=== PATIENT | male | born 1975 | race Hispanic/Latino ===

== ENCOUNTER 2024-12-04 16:33 | Emergency (ER) | payer BC ==
[~2024-12-04] VITALS: Ht 170.2 cm; Wt 111.1 kg
[2024-12-04 16:57] LABS: BASOPHILS # (AUTO) 0.08 K/uL (0.00-0.20); EOSINOPHILS # (AUTO) 0.12 K/uL (0.00-0.70); EOSINOPHILS % (AUTO) 1.5 % (0.0-8.0); HEMATOCRIT 51.2 % (42-54); IMMATURE GRANULOCYTE ABSOLUTE 0.05 K/uL (0-1); LYMPHOCYTES # (AUTO) 3.2 K/uL (1.0-4.8); LYMPHOCYTES % (AUTO) 39.4 % (21.0-51.0); MEAN CORPUSCULAR HGB CONC 33.8 g/dL (32.0-36.0); MEAN CORPUSCULAR VOLUME 88.7 fL (79-99); MONOCYTES # (AUTO) 0.9 K/uL (0.1-1.0); MONOCYTES % (AUTO) 10.6 % (3.0-13.0); NEUTROPHILS # (AUTO) 3.8 K/uL (1.8-7.7); NEUTROPHILS % (AUTO) 46.9 % (40.0-77.0); PLATELET COUNT (AUTO) 178 K/uL (130-400); RED BLOOD CELL COUNT(AUTO) 5.77 MIL/uL (4.50-6.20); RED CELL DISTRIBUTION WIDTH 12.3 % (11.0-15.5); WHITE BLOOD COUNT (AUTO) 8.1 K/uL (4.8-10.8)
--- NOTE | 2024-12-04 17:04 | HMCIMG ---
CT HEAD/BRAIN W/O CONTRAST HISTORY: Stroke COMPARISON: None TECHNIQUE: Multiple sequential axial images of the head were obtained from the base of the skull through vertex. Patient was not given contrast through intravenous route. FINDINGS: The ventricles and extraventricular CSF spaces are dilated consistent with cerebral atrophy. Nonspecific white matter changes seen. There is no midline shift, mass effect or herniation. No acute intracranial bleed is seen. Visualized portion of the paranasal sinuses are grossly within normal limits. IMPRESSION: 1. No acute intracranial bleed is seen. 2. Atrophy with white matter changes. CT was performed with one or more following dose reduction techniques: automated exposure control, adjustment of the mA and kv according to patient's size, or use of a iterative reconstruction technique.
[2024-12-04 17:08] LABS: CREATININE 1.2 mg/dL (0.5-1.3); POTASSIUM 3.9 mmol/L (3.5-5.1)
[2024-12-04 17:09] LABS: INR 1.02 (0.85-1.15); PROTHROMBIN TIME 10.8 SEC (9.6-11.6)
[2024-12-04 17:10] LABS: PARTIAL THROMBOPLASTIN TIME 25.1 SEC (26.3-35.5)
[2024-12-04 17:20] LABS: B-TYPE NATRIURETIC PEPTIDE < 5 pg/mL (0-100)
--- NOTE | 2024-12-04 17:20 | HMCIMG ---
CHEST 1VW CLINICAL HISTORY: STROKE SYMPTOMS COMPARISON: None TECHNIQUE: Single view of the chest was obtained. FINDINGS: The lungs are hypoventilated. The cardiac size and mediastinum are unremarkable. The bony structures are within normal limits. IMPRESSION: Hypoventilation.
[2024-12-04 17:27] LABS: APPEARANCE,URINE CLEAR (CLEAR); BILIRUBIN,URINE NEGATIVE (NEGATIVE); COLOR,URINE LIGHT-YELLOW (YELLOW); GLUCOSE, URINE (UA) >=1000 mg/dL (NEGATIVE); KETONES,URINE NEGATIVE (NEGATIVE); LEUKOCYTE ESTERASE ,URINE NEGATIVE Leu/uL (NEGATIVE); NITRATE,URINE NEGATIVE (NEGATIVE); OCCULT BLOOD,URINE NEGATIVE (NEGATIVE); PH,URINE 6.5 (5.0-8.0); PROTEIN,URINE NEGATIVE (NEGATIVE); UROBILINOGEN,URINE 0.2 mg/dL (0.2-1.0)
--- NOTE | 2024-12-04 17:28 | CONS ---
CONSULT NOTE: [place] [facility] Note # Demographics Consult Type: General Neurology Patient Location: Emergency Room First Name: GEOVANNA Last Name: UMESH Date of : 1975 Age: 49 Gender: Male Facility: [facility] Time of Initial Page (Central Time): 12/04/2024 16:48 Time of Return Call (Central Time): 12/04/2024 16:48 # HPI History: [id number] Patient is coming to ER for left sided numbness; he woke up around 1300 and noticed the numbness and tingling on the left side of lips. His symptoms have resolved and lasted few seconds. Duration: - resolved # Scores Time of exam and NIHSS (Central Time): 12/04/2024 17:11 Level of Consciousness 1a: [0] = Alert; keenly responsive LOC Questions 1b: [0] = Answers both questions correctly LOC Commands 1c: [0] = Performs both tasks correctly Best Gaze 2: [0] = Normal Visual 3: [0] = No visual loss Facial Palsy 4: [0] = Normal symmetrical movements Motor Arm Left 5a: [0] = No drift Motor Arm Right 5b: [0] = No drift Motor Leg Left 6a: [0] = No drift Motor Leg Right 6b: [0] = No drift Limb Ataxia 7: [0] = Absent Sensory 8: [0] = Normal Best Language 9: [0] = No aphasia Dysarthria 10: [0] = Normal Extinction and Inattention 11: [0] = No abnormality NIHSS Total: 0 # Assessment Impression: - Transient Ischemic Attack # Plan Thrombolytic/Intervention: NOT IV Thrombolysis or IA Intervention candidate Thrombolytic Exclusion (< 3 hour window): - NIHSS = 0 Intraarterial Exclusion: - clinical exam not consistent with presence of large vessel occlusion (LVO), can reconsider if LVO found on vascular imaging Modified Ham Scale (mRS) pre-stroke: [0] = No symptoms at all. Labs: - hemoglobin A1c - lipid panel - comprehensive metabolic panel - CBC Imaging: (urgency: STAT): - CT Angiogram Head and CT Angiogram Neck Imaging: (urgency: routine): - MRI Brain without contrast Diagnostic Test: - echo without bubble study Medication: - start statin with goal of LDL < 70 - aspirin 81 mg PLUS clopidogrel (Plavix) 75 mg for 21 days, then monotherapy therafter DVT Prophylaxis: - SCD Other: - If patient has any neurological deterioration please call me back immediately - LDL < 70 - permissive hypertension - telemetry monitoring - will need event monitor or loop recorder as outpatient if atrial fibrillation not found as inpatient - neurology referral as outpatient - I have discussed my recommendations with the referring provider # Logistics Attestation of consult completion: The patient is located at: [facility]. Facility staff participated in the visit. I performed this telemedicine visit from my offsite office utilizing interactive 2 way audio and visual telecommunication technology. Total time spent in telemedicine encounter: I spent 10 minutes reviewing clinical data and/or imaging, obtaining history, examining the patient, communicating with the onsite care team, and in preparation of this report. # Demographics First Name: GEOVANNA Last Name: UMESH Facility: [facility] OSMAN MOSQUERA MD December 04, 2024 17:28
[2024-12-04 17:30] LABS: ADD UA MICROSCOPIC YES; AMPHET/METH SCREEN,URINE NEGATIVE (NEGATIVE); BARBITURATE SCREEN, URINE NEGATIVE (NEGATIVE); BENZODIAZEPINES SCREEN,URINE NEGATIVE (NEGATIVE); CANNABINOID SCREEN,URINE NEGATIVE (NEGATIVE); COCAINE SCREEN,URINE NEGATIVE (NEGATIVE); OPIATE SCREEN,URINE NEGATIVE (NEGATIVE); PHENCYCLIDINE SCREEN,URINE NEGATIVE (NEGATIVE)
[2024-12-04 17:31] LABS: MUCUS,URINE RARE LPF (None Seen); RBC,URINE 0-1 /HPF (0-1); WBC,URINE 0-1 /HPF (0-1)
--- NOTE | 2024-12-04 17:49 | ERN ---
ED Note History of Present Illness Stated Complaint: FACIAL NUMBNESS Chief Complaint: Stroke Symptoms Time Seen by MD: 16:45 Time Seen by Midlevel: 16:50 Dictation: 49-year-old male with no past medical history coming in with complaints of feeling left-sided mild numbness that started at 1:00 p.m. it now states he has tingling/numbness sensation to the right side of his face. Patient states also about 30 minutes prior to arrival he felt his right hand weird" a as he was trying to sign a check. Code stroke activated in triage. Allergies: Coded Allergies: No Known Drug Allergies (Unverified Allergy, Unknown, 12/04/24) Home Meds No Active Prescriptions or Reported Meds Past Medical History Past Medical History: Diabetes-Type II, High Cholesterol, Hypertension Surgical History: None Review of System Dictation Constitutional: Negative for fever,chills, and weight loss Eyes: Negative for injury, pain,redness, and discharge ENT: Negative for injury,pain or swelling Cardiovascular: Negative for chest pain, palpitations, and edema Respiratory: Negative for shortness of breath, cough, and wheezing, Abdomen/GI: Negative for abdominal pain, nausea, vomiting, diarrhea, and constipation Back: Negative for injury and pain : Negative for injury, bleeding and discharge MS/Extremity: Negative for injury and deformity Skin: Negative for rash, and discoloration Neuro: Negative for headache, weakness, numbness, tingling, and seizure Psych: Negative for suicide ideation, homicidal ideation, and hallucinations Review of Systems: was completed Initial Vital Sign VS Vital Signs Date Time Temp Pulse Resp B/P (MAP) Pulse Ox O2 Delivery O2 Flow Rate FiO2 12/04/24 16:39 97.9 113 18 192/112 98 Room Air 0 12/04/24 16:45 21 Physical Exam Dictation General: awake, alert, NAD Head/Face: Normocephalic, atraumatic Eyes: PERRL, EOMI, vision at baseline ENT: oral cavity clear, TMs clear, no signs of infection Neck: Trachea midline, supple, no nuchal rigidity Cardiovascular: RRR, normal S1/S2, No MRGs, no JVD Respiratory: CTAB, no respiratory distress, No rales or wheezes Abdomen: Soft, non-tender, non-distended, normal bowel sounds, no guarding or rebound. Skin: Warm, dry, normal turgor, no rash MS/Extremity: Pulses equal, no cyanosis, neurovascular intact, FROM Neuro: COAx4, GCS 15, strength 5/5, CN 2-12 intact, normal cerebellar exam, normal gait, Psych: Normal behavior, mood, and affect normal Results (Laboratory/Radiology) Laboratory/Radiology Laboratory Tests Test 12/04/24 16:40 12/04/24 16:50 12/04/24 17:14 12/04/24 18:53 Whole Blood Glucose 317 MG/DL (70-110) H 295 MG/DL (70-110) H White Blood Count 8.1 K/uL (4.8-10.8) Red Blood Count 5.77 MIL/uL (4.50-6.20) Hemoglobin 17.3 g/dL (14.0-18.0) Hematocrit 51.2 % (42-54) Mean Corpuscular Volume 88.7 fL (79-99) Mean Corpuscular Hemoglobin 30.0 pg (27.0-33.0) Mean Corpuscular Hemoglobin Concent 33.8 g/dL (32.0-36.0) Red Cell Distribution Width 12.3 % (11.0-15.5) Platelet Count 178 K/uL (130-400) Mean Platelet Volume 12.4 fL (7.5-10.5) H Immature Granulocyte % (Auto) 0.6 % (0-1) Neutrophils (%) (Auto) 46.9 % (40.0-77.0) Lymphocytes (%) (Auto) 39.4 % (21.0-51.0) Monocytes (%) (Auto) 10.6 % (3.0-13.0) Eosinophils (%) (Auto) 1.5 % (0.0-8.0) Basophils (%) (Auto) 1.0 % (0.0-5.0) Neutrophils # (Auto) 3.8 K/uL (1.8-7.7) Lymphocytes # (Auto) 3.2 K/uL (1.0-4.8) Monocytes # (Auto) 0.9 K/uL (0.1-1.0) Eosinophils # (Auto) 0.12 K/uL (0.00-0.70) Basophils # (Auto) 0.08 K/uL (0.00-0.20) Absolute Immature Granulocyte (auto 0.05 K/uL (0-1) Nucleated Red Blood Cells 0.0 % (0.0-0.19) Prothrombin Time 10.8 SEC (9.6-11.6) Prothromb Time International Ratio 1.02 (0.85-1.15) Activated Partial Thromboplast Time 25.1 SEC (26.3-35.5) L Sodium Level 136 mmol/L (136-145) Potassium Level 3.9 mmol/L (3.5-5.1) Chloride Level 99 mmol/L (101-111) L Carbon Dioxide Level 31 mmol/L (21-32) Blood Urea Nitrogen 20 mg/dL (7-18) H Creatinine 1.2 mg/dL (0.5-1.3) Glomerular Filtration Rate Calc 73 mL/min (>90) Random Glucose 326 mg/dL (70-105) H Total Calcium 9.2 mg/dL (8.5-10.1) Total Creatine Kinase 75 U/L (21-232) Troponin I High Sensitivity 7 ng/L (4-75) B-Type Natriuretic Peptide < 5 pg/mL (0-100) LDL Cholesterol 144 mg/dL (0-99) H Urine Color LIGHT-YELLOW (YELLOW) Urine Appearance CLEAR (CLEAR) Urine pH 6.5 (5.0-8.0) Urine Specific [place] 1.036 (1.001-1.031) Urine Protein NEGATIVE mg/dL (NEGATIVE) Urine Glucose (UA) >=1000 mg/dL (NEGATIVE) H Urine Ketones NEGATIVE mg/dL (NEGATIVE) Urine Occult Blood NEGATIVE (NEGATIVE) Urine Nitrate NEGATIVE (NEGATIVE) Urine Bilirubin NEGATIVE mg/dL (NEGATIVE) Urine Urobilinogen 0.2 mg/dL (0.2-1.0) Urine Leukocyte Esterase NEGATIVE [place]/uL Urine RBC 0-1 /HPF (0-1) Urine WBC 0-1 /HPF (0-1) Urine Bacteria None /HPF (None Seen) Urine Opiates Screen NEGATIVE (NEGATIVE) Urine Barbiturates Screen NEGATIVE (NEGATIVE) Urine Phencyclidine Screen NEGATIVE (NEGATIVE) Urine Amphetamines Screen NEGATIVE (NEGATIVE) Urine Benzodiazepines Screen NEGATIVE (NEGATIVE) Urine Cocaine Screen NEGATIVE (NEGATIVE) Urine Marijuana (THC) Screen NEGATIVE (NEGATIVE) Labs Reviewed?: Yes EKG Comment: EKGs done at 5:56 p.m.. Sinus rhythm at 97. No STEMI interpreted by ER MD X-RAY Comment: [place] [id number] [address] IMAGING REPORT Signed PATIENT: GEOVANNA CALVO MR#: [id number] : 1975 SEX: M AGE: 49 LOCATION: [facility] ORDER 44 STATUS: REG [facility] REPORT#: [id number] SERVICE 42 REASON: STROKE SYMPTOMS ORDERING PHYSICIAN: AMY BOX MD PROCEDURE: CXR1VW - CHEST 1VW CHEST 1VW CLINICAL HISTORY: STROKE SYMPTOMS COMPARISON: None TECHNIQUE: Single view of the chest was obtained. FINDINGS: The lungs are hypoventilated. The cardiac size and mediastinum are unremarkable. The bony structures are within normal limits. IMPRESSION: Hypoventilation. DICTATED BY: HELLEN SEVILLA DO DATE: 12/04/241716 ELECTRONICALLY SIGNED BY: HELLEN SEVILLA DO DATE: 12/04/[address] Scan Comment: [place] [id number] [address] IMAGING REPORT Signed PATIENT: GEOVANNA CALVO MR#: [id number] : 1975 SEX: M AGE: 49 LOCATION: [facility] ORDER 44 STATUS: REG ER REPORT#: [id number] SERVICE 42 REASON: STROKE/TIA ORDERING PHYSICIAN: AMY BOX MD PROCEDURE: HEAD WO - CT HEAD/BRAIN W/O CONTRAST CT HEAD/BRAIN W/O CONTRAST HISTORY: Stroke COMPARISON: None TECHNIQUE: Multiple sequential axial images of the head were obtained from the base of the skull through vertex. Patient was not given contrast through intravenous route. FINDINGS: The ventricles and extraventricular CSF spaces are dilated consistent with cerebral atrophy. Nonspecific white matter changes seen. There is no midline shift, mass effect or herniation. No acute intracranial bleed is seen. Visualized portion of the paranasal sinuses are grossly within normal limits. IMPRESSION: 1. No acute intracranial bleed is seen. 2. Atrophy with white matter changes. CT was performed with one or more following dose reduction techniques: automated exposure control, adjustment of the mA and kv according to patient's size, or use of a iterative reconstruction technique. DICTATED BY: RIZWAN RAPP MD DATE: 12/04/241700 ELECTRONICALLY SIGNED BY: RIZWAN RAPP MD DATE: 12/04/24 170 ED Course ED Course Orders Procedure Category Date Status Time Vital Signs Per CPOE 12/04/24 Transmitted Routine 16:43 Cardiac Monitoring CPOE 12/04/24 Transmitted 16:43 Bedside Glucose CPOE 12/04/24 Transmitted Fingerstick 16:43 Oxygen By Nc/Pulse Ox CPOE 12/04/24 Transmitted 16:43 Saline Lock Iv CPOE 12/04/24 Transmitted 16:43 Nothing By Mouth DIET 12/04/24 Complete Dinner Bedside Swallow Eval ST 12/04/24 Transmitted 16:43 Cbc With Differential LAB 12/04/24 Complete 16:43 Partial LAB 12/04/24 Complete Thromboplastin Time 16:43 Prothrombin Time With LAB 12/04/24 Complete INR 16:43 Ct Head/Brain W/O CT 12/04/24 Resulted Contrast 16:43 Pulse Ox(Continuous) RT 12/04/24 Transmitted 16:43 Npo W/Aspiration CPOE 12/04/24 Transmitted Precautions 16:43 Complete Nih Stroke CPOE 12/04/24 Transmitted Scale 16:43 Creatine Kinase, Total LAB 12/04/24 Complete 16:43 Troponin I High LAB 12/04/24 Complete Sensitivity 16:43 B-Type Natriuretic LAB 12/04/24 Complete Peptide 16:43 Ldl Direct LAB 12/04/24 Complete 16:43 Urinalysis Profile LAB 12/04/24 Complete 16:43 Chest 1vw RAD 12/04/24 Resulted 16:43 Nihss Every Shift And CPOE 12/04/24 Transmitted PRN 16:43 Neurological Vs Q4hrs ANÍBAL 12/04/24 Transmitted 16:43 Basic Metabolic Panel LAB 12/04/24 Complete 16:43 Drug Screen Urine LAB 12/04/24 Complete 16:45 12 Lead Ekg Tracing- EKG 12/04/24 Resulted Technical 16:45 0.9%Nacl 1000ml (Ns PHA 12/04/24 Complete 1000ml) 18:27 Insulin Regular, PHA 12/04/24 Complete Human 3ml (Humulin R 18:29 Current Medications Medications (Trade) Dose Ordered Sig/Marilee Route PRN Reason Start Time Stop Time Status Last Admin Dose Admin Insulin Human Regular (humuLIN R 100 UNIT/ML 3ML) 5 unit ONCE STAT IV 12/04/24 18:29 12/04/24 18:31 DC 12/04/24 18:55 Sodium Chloride 1,000 ml @ 1,000 mls/hr Q1H STAT IV 12/04/24 18:27 12/04/24 19:26 DC 12/04/24 18:53 Vital Signs Date Time Temp Pulse Resp B/P (MAP) Pulse Ox O2 Delivery O2 Flow Rate FiO2 12/04/24 23:20 99.0 81 20 124/76 96 Room Air* 0 12/04/24 22:22 81 20 135/80 96 Room Air* 0 12/04/24 19:41 98.8 91 18 128/77 96 Room Air* 0 12/04/24 18:58 98.1 96 18 135/84 98 Room Air* 0 12/04/24 17:35 98.1 101 18 138/83 95 Room Air* 0 12/04/24 16:45 98.8 114 19 176/95 97 Room Air* 0 12/04/24 16:39 97.9 113 18 192/112 98 Room Air 0 Medical Decision Making MDM MDM: 49-year-old male with no past medical history coming in with complaints of feeling left-sided mild numbness that started at 1:00 p.m. it now states he has tingling/numbness sensation to the right side of his face. Patient states also about 30 minutes prior to arrival he felt his right hand weird" a as he was trying to sign a check. Code stroke activated in triage. On initial assessment initial NIH is one due to paresthesias. The work unremarkable other than hyperglycemia in the 300s.Neuro tele recommended stat CTA, MRI routine. Pt will be transferred for higher level of care. Pending transfer. 2000 care transferred to ER MD. Pending transfer. Differential diagnosis: CVA, ICH, TIA, anxiety Rationale: Tests considered and ordered secondary to shared decision making include: labs, ECG and radiology Previous outside records reviewed: Old ER visits. Risk of complication and/or morbidity or mortality of patient management: None Medications-Per medication reconciliation Need for hospitalization: Patient does meet criteria for hospitalization. Need for emergency major/minor surgery: No There are no social concerns with this patient. Prescription drug management Prescriptions will include symptomatic care Patient's prior external medical records from other ER visits were reviewed by me as indicated. Prior testing and results from previous visits were reviewed. Prior tests were taken into account with medical decision making and resource utilization, independent historian/historians were used to obtain complete medical history. I independently interpreted the test that were performed, results were reviewed by me and considered findings on radiology if ordered. Medical management and examination interpretation discussions were had by me with other qualified healthcare professionals as indicated for the patient's care. NIH STROKE SCALE: NIH STROKE SCALE Response (Comments) Value Level of Consciousness Alert 0 Ask patient month and their age Answers both correct 0 Command to open eyes, make fist and let go Obeys both correct 0 Best gaze (horizontal eye movement) Normal 0 Visual Field Testing No Visual Field Loss 0 Facial Paresis Minor Paralysis 1 Motor Function - Left Arm Normal 0 Motor Function - Right Arm Normal 0 Motor Function - Left Leg Normal 0 Motor Function - Right Leg Normal 0 Limb Ataxia No Ataxia 0 Sensory-pin prick to arms, legs, trunk and face Normal 0 Best Language (describe picture, name items and read) No Aphasia 0 Dysarthria (read several words) Normal Articulation 0 Extinction and Inattention Normal 0 Total DX & DISP Disposition: Transfer Departure Impression: Primary Impression: TIA (transient ischemic attack) Condition: Stable Scripts No Active Prescriptions or Reported Meds Referrals: SELF,REFERRAL (PCP) I have reviewed the case, and I agree with, Diagnosis and Plan MIGUEL ANGEL CARDONA NP December 04, 2024 17:49
--- NOTE | 2024-12-04 18:00 | NUR ---
BEDSIDE SWALLOW EVAL COMPLETED. No s/s of aspiration. Recommend regular solids, thin liquids, and whole meds with liquids. Compensatory strategies 1. Sit upright 2. slow oral intake 3. Alt between solids and liquids OFFICE MACHINE PUNCH OPERATOR reviewed results and recommendations with patient and nurse Samira. OFFICE MACHINE PUNCH OPERATOR educated patient on risk and consequences of aspiration. Speech Therapy not warranted at this time. All questions answered. Addendum: 12/04/24 at 1902 by BARTOLO AMADO Amended: Links added.
[2024-12-04] MEDS: 0.9%NACL 1000ML 1,000 ML IV STA (18:53)
[2024-12-04] MEDS: INSULIN humuLIN R 100 UNIT/ML 3ML IV STA (18:55)
--- NOTE | 2024-12-04 22:05 | NUR ---
TRANSFER CALL PLACED TO [facility] INSTRUCTOR BUSINESS EDUCATION TO INITIATE TRANSFER FOR NEURO SERVICES
--- NOTE | 2024-12-04 22:52 | NUR ---
TRANSFER PT. ACCEPTED @ 4499 BY AYDE POWELL [place] [facility] [place] AT THIS TIME: [place]. REPORT: [id number]
--- NOTE | 2024-12-04 23:04 | NUR ---
[facility] CALLED FOR TRANSPORT OF MONITORED PT.
[2024-12-04 23:20] VITALS: BP 124/76; PULSE 81; RESP 20; TEMP 98.9; O2SAT 96
--- NOTE | 2024-12-04 23:36 | NUR ---
REPORT GIVEN TO SONNY FERREIRA FROM [facility], ER TO ER TRANSFER
--- NOTE | 2024-12-04 23:41 | NUR ---
PATIENT LEAVING VIA EMS AT THIS TIME, IS IN NO DISTRESS
--- NOTE | 2024-12-05 08:07 | EKG ---
[facility] Test Date: 2024-12-04 Test Time: 17:56:40 Pat Name: GEOVANNA CALVO Department: ED Room: Gender: M Embedded Software Programmer: [id number] : 1975 Requested By: MIGUEL ANGEL CARDONA Order Number: [id number] Reading MD: Kumar Kaplan Measurements Intervals Joes Rate: 97 P: 18 HI: 126 QRS: -1 QRSD: 74 T: 22 QT: 330 QTc: 420 Interpretive Statements Sinus rhythm No previous ECG available for comparison Electronically Signed On 12-05-2024 12:52:05 CDT by Kumar Kaplan Please click the below link to view image of tracing.
== END 2024-12-04 23:41 | disposition short-term general hospital (02) ==
LOC: EDH 16:33
DX: R20.0 Anesthesia of skin (principal); E11.9 Type 2 diabetes mellitus without complications; E78.00 Pure hypercholesterolemia, unspecified; I10 Essential (primary) hypertension
CPT/HCPCS: 99284; 96374; 70450; 71045; 92610; 82550; 83721; 84484; 80048; 83880; 80305; 85025; 85610; 85730; 82948 ×2; 36415; 93005; 81001; J1815

== ENCOUNTER 2024-12-15 12:19 | Emergency (ER) | payer SELFPAY ==
[~2024-12-15] VITALS: Ht 170.2 cm; Wt 111.1 kg
--- NOTE | 2024-12-15 12:29 | EKG ---
[facility] Test Date: 2024-12-15 Test Time: 12:26:50 Pat Name: GEOVANNA CALVO Department: ED Room: Gender: M Supersonic Engineer: [id number] : 1975 Requested By: AMY BOX Order Number: [id number] Reading MD: Lizzy Gomez Measurements Intervals [place] Rate: 111 P: 39 LA: 133 QRS: 23 QRSD: 76 T: 50 QT: 320 QTc: 434 Interpretive Statements Sinus tachycardia Compared to ECG 12/04/2024 17:56:40 Sinus rhythm no longer present Electronically Signed On 12-16-2024 18:39:27 CDT by Lizzy Gomez Please click the below link to view image of tracing.
[2024-12-15 13:05] LABS: BASOPHILS # (AUTO) 0.06 K/uL (0.00-0.20); BASOPHILS % (AUTO) 0.7 % (0.0-5.0); EOSINOPHILS # (AUTO) 0.03 K/uL (0.00-0.70); EOSINOPHILS % (AUTO) 0.4 % (0.0-8.0); HEMATOCRIT 49.7 % (42-54); IMMATURE GRANULOCYTE ABSOLUTE 0.03 K/uL (0-1); LYMPHOCYTES # (AUTO) 1.8 K/uL (1.0-4.8); LYMPHOCYTES % (AUTO) 22.3 % (21.0-51.0); MEAN CORPUSCULAR HEMOGLOBIN 30.2 pg (27.0-33.0); MEAN CORPUSCULAR HGB CONC 34.4 g/dL (32.0-36.0); MEAN CORPUSCULAR VOLUME 87.7 fL (79-99); MONOCYTES # (AUTO) 0.7 K/uL (0.1-1.0); MONOCYTES % (AUTO) 8.4 % (3.0-13.0); NEUTROPHILS # (AUTO) 5.5 K/uL (1.8-7.7); NEUTROPHILS % (AUTO) 67.8 % (40.0-77.0); PLATELET COUNT (AUTO) 188 K/uL (130-400); RED BLOOD CELL COUNT(AUTO) 5.67 MIL/uL (4.50-6.20); WHITE BLOOD COUNT (AUTO) 8.1 K/uL (4.8-10.8)
[2024-12-15 13:10] LABS: POTASSIUM 3.5 mmol/L (3.5-5.1)
[2024-12-15 13:41] LABS: B-TYPE NATRIURETIC PEPTIDE < 5 pg/mL (0-100)
[2024-12-15 13:58] LABS: APPEARANCE,URINE CLEAR (CLEAR); BILIRUBIN,URINE NEGATIVE (NEGATIVE); COLOR,URINE LIGHT-YELLOW (YELLOW); GLUCOSE, URINE (UA) 500 mg/dL (NEGATIVE); KETONES,URINE 5 mg/dL (NEGATIVE); LEUKOCYTE ESTERASE ,URINE NEGATIVE Leu/uL (NEGATIVE); NITRATE,URINE NEGATIVE (NEGATIVE); OCCULT BLOOD,URINE NEGATIVE (NEGATIVE); PH,URINE 6.5 (5.0-8.0); PROTEIN,URINE NEGATIVE (NEGATIVE); UROBILINOGEN,URINE 0.2 mg/dL (0.2-1.0)
[2024-12-15 14:07] LABS: ADD UA MICROSCOPIC YES
[2024-12-15 14:14] LABS: BACTERIA,URINE None Seen /HPF (None Seen); MUCUS,URINE Rare LPF (None Seen); RBC,URINE None Seen /HPF (0-1); WBC,URINE 0-1 /HPF (0-1)
--- NOTE | 2024-12-15 14:51 | ERN ---
General Chief Complaint: Chest Pain Stated Complaint: CP SINCE THURSDAY Time Seen by MD: 12:20 Source: patient History of Present Illness Initial Comments Patient is a 49-year-old gentleman coming in to be evaluated for chest pressure. Patient states that he has been very anxious due to the previous diagnosis. Patient states that he was evaluated one week and a half ago and was diagnosed with a Fritz's palsy. He states that he has been feeling these symptoms since then. Patient also states that he had an MRI performed and no stroke was found. She states that shortly after that diagnosed he has been very anxious. Allergies: Coded Allergies: No Known Drug Allergies (Unverified Allergy, Unknown, 12/04/24) Home Meds No Active Prescriptions or Reported Meds Past Medical History Past Medical History: Anxiety, Depression, Diabetes-Type II, High Cholesterol, Hypertension Past Surgical History: None ROS Dictation CONSTITUTIONAL: No chills, no fever, no weakness, no diaphoresis, no malaise. HEAD/FACE: No signs of trauma. EENT: No eye pain, no blurred vision, no tearing, no double vision, no ear pain, no ear discharge, no nose pain, no nasal congestion, no throat pain, no throat swelling, no mouth pain. RESPIRATORY: No cough, no orthopnea, no SOB, no stridor, no wheezing. CARDIOVASCULAR: chest pain, no edema, no palpitations, no syncope. GASTROINTESTINAL/ABDOMINAL: No abdominal pain, no constipation, no diarrhea, no nausea, no vomiting. GENITOURINARY: No abnormal discharge, no dysuria, no frequent urination, no hematuria. No complaints of pain in the genitals. MUSCULOSKELETAL: No back pain, no gout, no joint pain, no joint swelling, no muscle pain, no muscle stiffness, no neck pain. INTEGUMENTARY: No change in color, no change in hair/nails, no dryness, no lesion, no lumps, no rash. NEUROLOGICAL/PSYCH: No anxiety, not depressed, no emotional problem, no headache, no numbness, no pre-existing deficit, no history of seizures, no tremors, no weakness. HEMATOLOGIC/LYMPHATIC: Not anemic, no history of blood clots, no apparent bleeding, no bruising, glands not swollen. All Systems Negative, Except as Noted. Physical Exam Physical Exam Dictation VITAL SIGNS: Reviewed. GENERAL APPEARANCE: Alert, oriented x3, no acute distress, obese. HEAD AND FACE: Non-traumatic. EYES: PERRL, pink conjunctivas, eyelid no trauma, anterior chamber clear. EARS: Pinnas intact and no signs of trauma or erythema. Ear canals clear and no discharge. TMs no erythema. NOSE: No discharge, no bleeding. OROPHARYNX: Mouth normal, teeth no caries, tongue pink. Pharynx clear, no erythema. Tonsils no exudates, no abscesses noted. Mucous membrane moist. NECK: Supple, non-tender, no thyromegaly, no masses, no JVD, no bruits. BREAST: Deferred. CHEST: No tenderness, no crepitus, no paradoxical movement, no retractions. LUNGS: Clear, well-ventilated, symmetric, no rales, no wheezing, no rhonchi, no stridor, good breath sounds bilaterally. HEART: Regular rate, regular rhythm, no murmur, no gallops. VASCULAR: No peripheral edema. ABDOMEN: Soft, positive bowel sounds, nondistended, no guarding, nontender, no rebound, no masses no hepatomegaly, no splenomegaly, no Timmons's sign, no hernias. RECTAL: Deferred. GENITAL: Deferred. NEUROLOGICAL: Normal speech, gross motor function intact, gross sensory function intact. MUSCULOSKELETAL: Neck nontender, full range of motion, back nontender, full range of motion. EXTREMITIES: Nontender, full range of motion. SKIN: Color pink, dry, no turgor, no rash, no lacerations, no abrasions, no contusions. LYMPHATICS: Deferred. Results Laboratory and Microbiology Lab and Micro Result Laboratory Tests Test 12/15/24 12:54 12/15/24 13:40 White Blood Count 8.1 K/uL (4.8-10.8) Red Blood Count 5.67 MIL/uL (4.50-6.20) Hemoglobin 17.1 g/dL (14.0-18.0) Hematocrit 49.7 % (42-54) Mean Corpuscular Volume 87.7 fL (79-99) Mean Corpuscular Hemoglobin 30.2 pg (27.0-33.0) Mean Corpuscular Hemoglobin Concent 34.4 g/dL (32.0-36.0) Red Cell Distribution Width 12.0 % (11.0-15.5) Platelet Count 188 K/uL (130-400) Mean Platelet Volume 12.3 fL (7.5-10.5) H Immature Granulocyte % (Auto) 0.4 % (0-1) Neutrophils (%) (Auto) 67.8 % (40.0-77.0) Lymphocytes (%) (Auto) 22.3 % (21.0-51.0) Monocytes (%) (Auto) 8.4 % (3.0-13.0) Eosinophils (%) (Auto) 0.4 % (0.0-8.0) Basophils (%) (Auto) 0.7 % (0.0-5.0) Neutrophils # (Auto) 5.5 K/uL (1.8-7.7) Lymphocytes # (Auto) 1.8 K/uL (1.0-4.8) Monocytes # (Auto) 0.7 K/uL (0.1-1.0) Eosinophils # (Auto) 0.03 K/uL (0.00-0.70) Basophils # (Auto) 0.06 K/uL (0.00-0.20) Absolute Immature Granulocyte (auto 0.03 K/uL (0-1) Nucleated Red Blood Cells 0.0 % (0.0-0.19) Sodium Level 137 mmol/L (136-145) Potassium Level 3.5 mmol/L (3.5-5.1) Chloride Level 100 mmol/L (101-111) L Carbon Dioxide Level 27 mmol/L (21-32) Blood Urea Nitrogen 18 mg/dL (7-18) Creatinine 1.0 mg/dL (0.5-1.3) Glomerular Filtration Rate Calc 91 mL/min (>90) Random Glucose 193 mg/dL (70-105) H Total Calcium 9.4 mg/dL (8.5-10.1) Total Creatine Kinase 68 U/L (21-232) Troponin I High Sensitivity 9 ng/L (4-75) B-Type Natriuretic Peptide < 5 pg/mL (0-100) Urine Color LIGHT-YELLOW (YELLOW) Urine Appearance CLEAR (CLEAR) Urine pH 6.5 (5.0-8.0) Urine Specific [place] 1.014 (1.001-1.031) Urine Protein NEGATIVE mg/dL (NEGATIVE) Urine Glucose (UA) 500 mg/dL (NEGATIVE) H Urine Ketones 5 mg/dL (NEGATIVE) H Urine Occult Blood NEGATIVE (NEGATIVE) Urine Nitrate NEGATIVE (NEGATIVE) Urine Bilirubin NEGATIVE mg/dL (NEGATIVE) Urine Urobilinogen 0.2 mg/dL (0.2-1.0) Urine Leukocyte Esterase NEGATIVE [place]/uL Urine RBC None Seen /HPF (0-1) Urine WBC 0-1 /HPF (0-1) Urine Bacteria None Seen /HPF (None Seen) Labs Reviewed?: Yes EKG/XRAY/US/CT/MRI EKG Comment 12/15/2024 time 12:26 p.m. Ventricular rate 111 Sinus tachycardia [place] [address] wave elevation or depression X-RAY Comment [address] [place] [address] IMAGING REPORT Signed PATIENT: GEOVANNA CALVO MR#: [id number] : 1975 SEX: M AGE: 49 LOCATION: [facility] ORDER 1221 STATUS: [facility] ER REPORT#: [id number] SERVICE 1220 REASON: CHEST PAIN ORDERING PHYSICIAN: AMY BOX MD PROCEDURE: CXR1VW - CHEST 1VW Exam Type: CHEST 1VW Clinical Information: CHEST PAIN Comparison: None Findings: The lungs are clear of infiltrates. The heart is normal in size. The bony and soft tissue structures of the chest are unremarkable. Impression: Clear lungs. DICTATED BY: JESSICA MCGUIRE MD DATE: 12/15/241445 ELECTRONICALLY SIGNED BY: JESSICA MCGUIRE MD DATE: 12/15/24 1449 MDM MDM: Differential diagnosis: Chest pressure, anxiety, GERD, Rationale: Tests considered and ordered secondary to shared decision making include: Previous outside records reviewed: Old ER visits. Patient is a 49-year-old gentleman coming in to be evaluated for chest pressure. Patient received anxiolytics as well as some Protonix. He states the symptoms have completely subsided. Patient will be discharged in stable condition with a diagnosis of anxiety and GERD. ED Course Orders Procedure Category Date Status Time Vital Signs Per CPOE 12/15/24 Transmitted Routine 12:20 B-Type Natriuretic LAB 12/15/24 Complete Peptide 12:20 Chest 1vw RAD 12/15/24 Resulted 12:20 12 Lead Ekg Tracing- EKG 12/15/24 Complete Technical 12:20 Oxygen By Nc/Pulse Ox CPOE 12/15/24 Transmitted 12:20 Maintain Iv CPOE 12/15/24 Transmitted 12:20 Iv Insertion CPOE 12/15/24 Transmitted 12:20 Cardiac Monitoring CPOE 12/15/24 Transmitted 12:20 Pulse Oximetry With CPOE 12/15/24 Transmitted Vs And Prn 12:20 Cbc With Differential LAB 12/15/24 Complete 12:20 Activity: Br W/Brp CPOE 12/15/24 Transmitted With Assist 12:20 Creatine Kinase, Total LAB 12/15/24 Complete 12:20 Troponin I High LAB 12/15/24 Complete Sensitivity 12:20 Urinalysis Profile LAB 12/15/24 Complete 12:20 Basic Metabolic Panel LAB 12/15/24 Complete 12:20 Diazepam 2 Mg Tab PHA 12/15/24 Complete (Valium 2 Mg Tab) 15:00 Pantoprazole 40mg Inj PHA 12/15/24 Complete (Protonix 40mg Inj 15:00 Current Medications Medications (Trade) Dose Ordered Sig/Marilee Route PRN Reason Start Time Stop Time Status Last Admin Dose Admin Diazepam (VALium 2 mg Tab) 2 mg ONCE ONCE PO 12/15/24 15:00 12/15/24 15:01 DC 12/15/24 15:04 Pantoprazole Sodium (PROTonix 40MG INJ) 40 mg ONCE ONCE IVP 12/15/24 15:00 12/15/24 15:01 DC 12/15/24 15:04 Vital Signs Date Time Temp Pulse Resp B/P (MAP) Pulse Ox O2 Delivery O2 Flow Rate FiO2 12/15/24 14:08 98.2 108 18 143/96 98 Room Air* 0 21 12/15/24 12:20 98.8 122 20 151/96 99 Room Air 0 HEART Score Response (Comments) Value History: Low suspicion (0) 0 EKG: Repolarization changes 1 Age: 45-65yrs (+1) 1 Risk Factors: No known risk factors (0) 0 Initial Troponin: Normal limit (0) 0 HEART Score Risk: Low Risk for MACE (1-3) Total 2 DX & DISP Disposition: Discharge Departure Impression: Primary Impression: Anxiety Additional Impression: Gastritis Condition: Stable Scripts Pantoprazole Sodium (Protonix) 40 Mg Ectab 1 TAB PO DAILY for 30 Days, #30 TAB 0 Refills Prov: AMY BOX MD 12/15/24 Additional Instructions: You have been reviewed in the emergency department at [facility] after presenting with chest pain. After considering your history, your risk f actors, your EKG and your blood test troponins, have been found to be at very low risk less than (1 in 100) of having a major adverse cardiac event (like heart attack) in the near future. In the " low risk" group, the risks of doing further tests and treatment as the inpatient outweighs the benefits. In many patients in the low risk group for the test of any sort or unnecessary, however he should discuss this further with his general practitioner who will understand the medical and personal backgrounds better. Because we have never declared you" no risk" we would suggest. 1 returning for medical review if you have further episodes of chest pain/arm pain or other concerning symptoms like dizziness, collapse, palpitations or shortness of breath. 2. Following up with your local doctor who will consider the need for further testing and will also ensure that any modifiable risk factors you may have for heart disease are optimally managed. Patient will be discharged in stable condition at the moment discharge patient states , no chest pain Referrals: ABRAHAM MCKEON (PCP) Time of Disposition: 15:10 AMY BOX MD December 15, 2024 14:51
[2024-12-15] MEDS: diazePAM 2 MG TAB PO ONE (15:04)
[2024-12-15] MEDS: PANTOPrazole 40 MG/VIAL IVP ONE (15:04)
[2024-12-15] MEDS ORDERED: PANT40TA55 PO (15:11)
[2024-12-15 15:26] VITALS: BP 135/84; PULSE 100; RESP 18; TEMP 98.2; O2SAT 99
== END 2024-12-15 15:27 | disposition home or self-care (01) ==
LOC: EDH 12:19
DX: F41.9 Anxiety disorder, unspecified (principal); K29.70 Gastritis, unspecified, without bleeding; E11.9 Type 2 diabetes mellitus without complications; E78.00 Pure hypercholesterolemia, unspecified; I10 Essential (primary) hypertension; F32.A Depression, unspecified
CPT/HCPCS: 99285; 96374; 71045; 82550; 84484; 80048; 83880; 85025; 81001; 36415; 93005; J2470